=== PATIENT | female | born 1995 | race African-American/Black ===

== ENCOUNTER 2020-07-09 16:16 | Emergency (ER) | payer OTHER, SELFPAY ==
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
[2020-07-09 17:22] VITALS: BP 135/88; PULSE 69; RESP 16; TEMP 36.4; O2SAT 100
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
[2020-07-09 19:46] VITALS: BP 141/76; PULSE 69; RESP 20; TEMP 37.1; O2SAT 100
[2020-07-09 19:49] VITALS: BP 141/76; PULSE 69; RESP 20; TEMP 37.1; O2SAT 100
== END 2020-07-09 19:50 | disposition home or self-care (01) ==
PROVIDERS: Emergency Provider Emergency Medicine; PCP Obstetrics & Gynecology
DX: S80.02XA Contusion of left knee, initial encounter (principal); V47.5XXA Car driver injured in collision with fixed or stationary object in traffic accident, initial encounter
CPT/HCPCS: 73564; 99283